=== PATIENT | male | born 1995 | race Caucasian/White ===

== ENCOUNTER 2018-10-09 06:00 | Day surgery (SDC) | payer OTHER ==
[~2018-10-09] VITALS: Ht 175.3 cm; Wt 81.4 kg
[2018-10-09] VITALS (19 sets, daily range): BP systolic 91–118; BP diastolic 50–71; PULSE 50–66; RESP 10–18; Ht 175.3 cm; Wt 81.4 kg
[2018-10-09] MEDS ORDERED: BUPIVACAINE 0.5% (SDV) 30 ML INJ ONE (06:41)
[2018-10-09] MEDS ORDERED: BUPIVACAINE 0.25% (MPF) 30 ML INJ ONE (06:42)
[2018-10-09] MEDS ORDERED: LIDOCAINE 2% (MDV) 20 ML INJ ONE (06:42)
[2018-10-09] MEDS ORDERED: SEVOFLURANE 15 MIN ONE (07:00)
[2018-10-09] MEDS ORDERED: SOD CHLORIDE 0.9% 1,000 ML IV SCH (07:00)
[2018-10-09] MEDS ORDERED: CEFAZOLIN 2 GM/50 ML (PMX) 50 ML IVPB ONE (07:00)
--- NOTE | 2018-10-09 07:34 | PREAC ---
Date/Time of Note Date/Time of Note DATE: 10/09/18 TIME: 07:30 Anesthesia Eval and Record Evaluation Time Pre-Procedure Interview DATE: 10/09/18 TIME: 07:30 Age 23 Sex male NPO: 8 hrs Preoperative diagnosis Lt shoulder mass Planned procedure Excision Lt shoulder mass Past Medical History Past Medical History: Includes : Other (Blindness) Surgery & Anesthesia Issues No known issue Meds Anticoagulation: No Beta Anjel within 24 hr: No Reason Beta Anjel not given: Pt. not on B-Anjel Current Medications Sodium Chloride 1,000 ml @ 75 mls/hr [id number] IV Last administered on 10/09/18at 06:49; Admin Dose 75 MLS/HR; Start 10/09/18 at 07:00 Meds reviewed: Yes Allergies Coded Allergies: No Known Allergy (Unverified , 10/09/18) Allergies Reviewed: Yes Labs/Studies Labs Reviewed: Reviewed by anesthesiologist test: N/A Studies: ECG Pre-procedure Exam Last vitals Vital Signs Date Temp Pulse Resp B/P (MAP) Pulse Ox O2 O2 Flow FiO2 Time Delivery Rate 10/09/18 97.7 62 18 118/70 97 Room Air 06:47 (86) Airway: Adequate mouth opening, Adequate thyromental dist Mallampati: Mallampati II Teeth: Normal Lung: Normal Heart: Normal ASA Physical Status ASA physical status: 2 Emergency: None Planned Anesthetic General/MAC: LMA Planned Pain Management Parenteral pain med Pre-operative Attestations Prior to commencing anesthesia and surgery, the patient was re-evaluated, there was verification of: *The patient's identity *The results of appropriate recent lab work and preoperative vital signs *The above evaluation not changing prior to induction *Anesthetic plan, risk benefits, alternative and complications discussed with patient/family; questions answered; patient/family understands, accepts and wishes to proceed. RADHA REED MD Oct 09, 2018 07:34
[2018-10-09] MEDS ORDERED: FENTAnyl 50 MCG/ML VIAL ONE (07:58)
[2018-10-09] MEDS ORDERED: MIDAZOLAM 1 MG/ML 2 ML INJ ONE (07:58)
[2018-10-09] MEDS ORDERED: CEFAZOLIN 1 GM INJ ONE (08:19)
[2018-10-09] MEDS ORDERED: PROPOFOL 20 ML ONE (08:19)
[2018-10-09] MEDS ORDERED: LIDOCAINE 2% (SDV) 5 ML INJ ONE (08:19)
[2018-10-09] MEDS ORDERED: ONDANSETRON 4 MG INJ ONE (08:20)
--- NOTE | 2018-10-09 08:25 | OPR ---
Date/Time of Note Date/Time of Note DATE: 10/09/18 TIME: 08:23 Operative Report Procedure Date: Oct 09, 2018 Preoperative Diagnosis left shoulder mass Postoperative Diagnosis same Operation/Procedure Performed 1. excision of left shoulder mass 4 cm mass 4 cm incision 2. localized adjacent tissue transfer with the use of skin flaps 8 sq cm defect 3. therapeutic injection of subcutaneous local anesthesia Surgeon see signature line [employer] none Anesthesia Type: general Estimated Blood Loss: 0 - 10 ml's Transfusion none Specimen left shoulder mass Grafts/Implants none Complications none Pt Condition Post Procedure: stable Indications This is a 23-year-old male with an unfortunate multiple medical histories. He also has a mass on his left shoulder and request surgical excision. Risks alt ernatives benefits and percent were discussed the patient. Patient expresses understanding consents to the operation. Procedure Description Patient is taken to the OR and prepped and draped in usual sterile fashion. Surgical timeout is performed. IV antibiotics were given. Elliptical incision was made with a 15 blade over the left shoulder mass. Dissection with cautery was carried onto the mass. The mass was circumferentially excised. Good hemostasis established. Due to the large tissue defect localized adjacent to his transfer with these of skin flaps was performed. Multilayer closure with interrupted 0 Vicryl and skin manju. Therapeutic subcutaneous local anesthesia was injected at the incision site. Dry dressings were applied. Reinaldo JOSHI Oct 09, 2018 08:25
[2018-10-09] MEDS ORDERED: HYDROCODONE/APAP (5/325) TAB PO ONE ×2 (08:30→11:00)
--- NOTE | 2018-10-09 08:34 | PAC ---
Date/Time of Note Date/Time of Note DATE: 10/09/18 TIME: 08:34 Post-Anesthesia Notes Post-Anesthesia Note Last documented vital signs Vital Signs Date Temp Pulse Resp B/P (MAP) Pulse Ox O2 O2 Flow FiO2 Time Delivery Rate 10/09/18 97.7 62 18 118/70 97 Room Air 06:47 (86) Activity: WNL Respiratory function: WNL Cardiovascular function: WNL Mental status: Baseline Pain reasonably controlled: Yes Hydration appropriate: Yes Nausea/Vomiting absent: Yes Comments BP:112/67, P:78, Spo2:100%, T:98,8 RADHA REED MD Oct 09, 2018 08:34
[2018-10-09] MEDS ORDERED: FENTAnyl 50 MCG/ML VIAL IV PRN (09:00)
[2018-10-09] MEDS ORDERED: MEPERIDINE 25 MG INJ IV PRN (09:00)
[2018-10-09] MEDS ORDERED: METOCLOPRAMIDE 10 MG INJ IV PRN (09:00)
[2018-10-09] MEDS ORDERED: ONDANSETRON 4 MG INJ IV PRN (09:00)
[2018-10-09] MEDS ORDERED: HYDROmorphONE 1 MG/5 ML IV SYRINGE IV PRN (09:00)
[2018-10-09] MEDS ORDERED: DIPHENHYDRAMINE 50 MG INJ IV PRN (09:00)
== END 2018-10-09 11:30 | disposition home or self-care (01) ==
LOC: SDS 06:00
PROVIDERS: ATTEND Surgery
DX: D17.22 Benign lipomatous neoplasm of skin and subcutaneous tissue of left arm (principal)
CPT/HCPCS: 14000; 88307; J0690; J2250; J2405; J3010; Z7512; Z7610